=== PATIENT | male | born 1955 | race Caucasian/White ===

== ENCOUNTER 2017-01-31 13:17 | Inpatient (IN) | payer OTHER ==
--- NOTE | 2017-01-31 17:10 | HP ---
COWS - Scale Resting Pulse: 1= [place] 81-100 Sweatin=Flushed/Facial Moisture Restless Observation: 1= Difficult to Sit Still Pupil Size: 0= Normal to Room Light Bone or Joint Aches: 2= Severe Diffuse Aches Runny Nose/ Eye Tearin= Runny Nose/Eyes GI Upset > 30mins: 2= Nausea/Diarrhea Tremor Observation: 2= Slight Tremor Visible Yawning Observation: 2= >3x During Session Anxiety or Irritability: 2=Irritable/Anxious Goose Flesh Skin: 3=Piloerection COWS Score: 19 Admission ROS [facility] - [facility] Chief Complaint: I am here to detox. Allergies/Adverse Reactions: Allergies Allergy/AdvReac Type Severity Reaction Status Date / Time penicillin G Allergy Severe Hives Verified 01/31/17 16:45 sulfamethoxazole Allergy Severe Hives Verified 01/31/17 16:45 [From Bactrim] trimethoprim [From Bactrim] Allergy Severe Hives Verified 01/31/17 16:45 History of Present Illness: pt is a 62yr old male with a history of heroin and cocaine dependence seeking detox for treatment. Exam Limitations: No Limitations - Ebola screening Have you traveled outside of the country in the last 21 days: No Have you had contact with anyone from an Ebola affected area: No Have you been sick,other than usual withdrawal symptoms: No Do you have a fever: No - Review of Systems Constitutional: Chills, Diaphoresis, Loss of Appetite, Night Sweats, Changes in sleep, Unintentional Wgt. Loss EENT: reports: Tearing, Nose Congestion Respiratory: reports: No Symptoms reported Cardiac: reports: No Symptoms Reported GI: reports: Poor Appetite, Poor Fluid Intake : reports: No Symptoms Reported Musculoskeletal: reports: Back Pain Integumentary: reports: Flushing, Sweating Neuro: reports: Headache, Tingling, Tremors Endocrine: reports: Excessive Sweating, Flushing, Intolerance to Cold, Intolerance to Heat Hematology: reports: No Symptoms Reported Psychiatric: reports: Judgement Intact, Mood/Affect Appropiate, Orientated x3, Agitated, Anxious Other Systems: Reviewed and Negative Patient History - Patient Medical History Hx Anemia: No Hx Asthma: No Hx Chronic Obstructive Pulmonary Disease (COPD): No Hx Cancer: No Hx Cardiac Disorders: No Hx Congestive Heart Failure: No Hx Hypertension: Yes Hx Hypercholesterolemia: No Hx Pacemaker: No HX Cerebrovascular Accident: No Hx Seizures: No Hx Dementia: No Hx Diabetes: No Hx Gastrointestinal Disorders: No Hx Liver Disease: No Hx Genitourinary Disorders: No Hx Sexually Transmitted Disorders: No Hx Renal Disease (ESRD): No Hx Thyroid Disease: No Hx Human Immunodeficiency Virus (HIV): Yes (diagnosed 11/1996 not in treatment.) Hx Hepatitis C: Yes Hx Depression: No Hx Suicide Attempt: No Hx Bipolar Disorder: No Hx Schizophrenia: No - Patient Surgical History Past Surgical History: Yes Hx Neurologic Surgery: No Hx Cataract Extraction: No Hx Cardiac Surgery: No Hx Lung Surgery: No Hx Breast Surgery: No Hx Breast Biopsy: No Hx Abdominal Surgery: No Hx Appendectomy: Yes Hx Cholecystectomy: No Hx Genitourinary Surgery: No Hx Section: No Hx Orthopedic Surgery: No Other Surgical History: tonsillectomy Anesthesia Reaction: No - PPD History Previous Implant?: Yes Documented Results: Positive w/o proof Implanted On Prior R Admission?: No PPD to be Administered?: No - Reproductive History Patient is a Female of Child Bearing Age (11 -55 yrs old): No - Smoking Cessation Smoking history: Current every day smoker Have you smoked in the past 12 months: Yes Aproximately how many cigarettes per day: 10 Hx Chewing Tobacco Use: No Initiated information on smoking cessation: Yes 'Breaking Loose' booklet given: 01/31/17 - Substance & Tx. History Hx Alcohol Use: No Hx Substance Use: Yes Substance Use Type: Cocaine, Heroin Hx Substance Use Treatment: Yes (last detox 07/2016 at [facility]) - Substances Abused Heroin Route: Inhalation Frequency: Daily Amount used: 10 bags Age of first use: 16 Date of Last Use: 01/31/17 Crack Route: Smoking Frequency: Daily Amount used: $100-200 Age of first use: 26 Date of Last Use: 01/30/17 Family Disease History - Family Disease History Family History: Denies Admission Physical Exam BHS - Vital Signs Vital Signs: Vital Signs - 24 hr 01/31/17 14:52 Temperature 97.0 F L Pulse Rate 90 Respiratory 18 Rate Blood Pressure 150/90 - Physical General Appearance: Yes: Appropriately Dressed, Moderate Distress, Thin, Tremorous, Irritable, Sweating, Anxious HEENTM: Yes: Hearing grossly Normal, Normal Voice, Nasal Congestion, Rhinorrhea Respiratory: Yes: Lungs Clear, Normal Breath Sounds, No Respiratory Distress Neck: Yes: No masses,lesions,Nodules Breast: Yes: Within Normal Limits Cardiology: Yes: Regular Rhythm, Regular Rate, S1, S2 Abdominal: Yes: Normal Bowel Sounds, Soft Genitourinary: Yes: Within Normal Limits Back: Yes: Normal Inspection Musculoskeletal: Yes: Gait Steady, Back pain Extremities: Yes: Normal Capillary Refill, Normal Inspection, Tremors Neurological: Yes: Fully Oriented, Alert, Normal Response Integumentary: Yes: Normal Color, Diaphoresis Lymphatic: Yes: Within Normal Limits - Diagnostic (1) Opioid dependence with withdrawal Current Visit: Yes Status: Chronic (2) HIV (human immunodeficiency virus infection) Current Visit: Yes Status: Chronic Comment: not recieving any treatment for HIV (3) Hypertension Current Visit: Yes Status: Chronic Qualifiers: Hypertension type: essential hypertension Qualified Code(s): I10 - Essential (primary) hypertension (4) Nicotine dependence Current Visit: Yes Status: Chronic Qualifiers: Nicotine product type: cigarettes Substance use status: uncomplicated Qualified Code(s): F17.210 - Nicotine dependence, cigarettes, uncomplicated (5) Hepatitis C Current Visit: Yes Status: Chronic Qualifiers: Viral hepatitis chronicity: chronic Hepatic coma status: without hepatic coma Qualified Code(s): B18.2 - Chronic viral hepatitis C Cleared for Admission [facility] - Detox or Rehab [facility] Level of Care: Medically Managed Detox Regimen/Protocol: Methadone [facility] Breath Alcohol Content Breath Alcohol Content: 0 Urine Drug Screen - Results Drug Screen Negative: No Urine Drug Screen Results: ISAMAR-Cocaine, OPI-Opiates, MTD-Methadone
[2017-01-31] MEDS ORDERED: diphenhydrAMINE HCL 50 MG CAPSULE PO PRN (17:12)
[2017-01-31] MEDS ORDERED: IBUPROFEN 400 MG TABLET (FP) PO PRN (17:12)
[2017-01-31] MEDS ORDERED: LOPERAMIDE HCL 2 MG CAPSULE PO PRN (17:12)
[2017-01-31] MEDS ORDERED: hydrOXYzine PAMOATE 50 MG CAPSULE (FP) PO PRN (17:12)
[2017-01-31] MEDS ORDERED: METHADONE HCL 10 MG TABLET (FOR DETOX USE ONLY) PO ONE ×2 (17:12→23:00)
[2017-01-31] MEDS ORDERED: MAGNESIUM CITRATE 300 ML BOTTLE PO PRN (17:12)
[2017-01-31] MEDS ORDERED: ACETAMINOPHEN 325 MG TABLET (FP) PO PRN (17:12)
[2017-01-31] MEDS ORDERED: MAG HYDROX/AL HYDROX/SIMETH 30 ML UNIT-DOSE CUP PO PRN (17:12)
[2017-01-31] MEDS ORDERED: MAGNESIUM HYDROX 2400MG/30ML ORAL SUSPENSION 30 ML CUP PO PRN (17:12)
[2017-01-31] MEDS ORDERED: P-EPHED 60MG/TRIPROLIDI 2.5MG TABLET PO PRN (17:12)
[2017-01-31] MEDS ORDERED: guaiFENesin/D-METHORPHAN HB 10 ML UNIT-DOSE CUPS PO PRN (17:12)
[2017-01-31] MEDS ORDERED: MENTHOL/PHENOL 1 EACH UD MM PRN (17:12)
[2017-01-31] MEDS ORDERED: NICOTINE POLACRILEX 4 MG GUM BC PRN (17:12)
[2017-01-31] MEDS: diazePAM 5 MG TABLET PO PRN (19:13)
[2017-01-31 21:34] LABS: URINE APPEARANCE CLEAR; URINE BILIRUBIN NEGATIVE (NEGATIVE); URINE BLOOD NEGATIVE (NEGATIVE); URINE COLOR YELLOW; URINE GLUCOSE (UA) 1+ (NEGATIVE); URINE KETONE NEGATIVE (NEGATIVE); URINE LEUK ESTERASE NEGATIVE (NEGATIVE); URINE NITRITE NEGATIVE (NEGATIVE); URINE UROBILINOGEN NEGATIVE mg/dL (0.2-1.0)
[2017-01-31 21:37] LABS: URINE PROTEIN 2+ (NEGATIVE)
[2017-01-31 21:39] LABS: URINE BACTERIA RARE /hpf (NONE SEEN); URINE HYALINE CAST 1 /lpf; URINE MUCUS RARE; URINE RBC 7 /hpf (0-3); URINE WBC 1 /hpf (3-5)
[2017-01-31] MEDS: THIAMINE HCL 100 MG TABLET (FP) PO SCH (22:05)
[2017-02-01] MEDS: diazePAM 5 MG TABLET PO PRN ×2 (06:06→14:17)
[2017-02-01] MEDS ORDERED: cloNIDine HCL 0.1 MG TABLET PO ONE (07:59)
[2017-02-01] MEDS ORDERED: METHADONE HCL 10 MG TABLET (FOR DETOX USE ONLY) PO ONE (10:00)
[2017-02-01] MEDS: PRENATAL VITAMINS W/ FOLIC ACID TABLET (FP) PO SCH (10:05)
[2017-02-01] MEDS: amLODIPine BESYLATE 10 MG TABLET (FP) PO SCH (10:05)
[2017-02-01] MEDS: NICOTINE 21 MG/24 HOURS TOPICAL PATCH TD SCH (10:06)
[2017-02-01 10:43] LABS: MCH 29.6 pg (25.7-33.7); MCHC 33.1 g/dl (32.0-35.9); MEAN CELL VOLUME 89.4 fl (80-96); MEAN PLT VOLUME 9.5 fl (7.5-11.1); PLATELET COUNT 56 K/MM3 (134-434); RDW 14.4 % (11.9-15.9); WHITE BLOOD COUNT 3.2 K/mm3 (4.0-10.0)
[2017-02-01 11:04] LABS: ALBUMIN 2.8 g/dl (3.4-5.0); ALK PHOS 96 U/L (45-117); ANION GAP 6 (8-16); BILIRUBIN,TOTAL 0.3 mg/dL (0.2-1.0); CALCIUM 8.2 mg/dL (8.5-10.1); CO2 30 mmol/L (21-32); CREATININE 1.4 mg/dL (0.7-1.3); GLUCOSE,RANDOM 71 mg/dL (74-106); SGOT/AST 39 U/L (15-37); SGPT/ALT 35 U/L (12-78); TOT PROT 7.6 g/dl (6.4-8.2)
[2017-02-01 12:24] LABS: PLATELET COMMENT2 NO CLOTTING DETECTED; PLATELET ESTIMATE DECREASED (NORMAL)
--- NOTE | 2017-02-01 13:24 | PN ---
S COWS - Scale Resting Pulse: 0= [place] 80 or Below Sweatin= Chills/Flushing Restless Observation: 0= Sits Still Pupil Size: 0= Normal to Room Light Bone or Joint Aches: 2= Severe Diffuse Aches Runny Nose/ Eye Tearin= Runny Nose/Eyes GI Upset > 30mins: 1= Stomach Cramp Tremor Observation of Outstretched Hands: 2= Slight Tremor Visible Yawning Observation: 1= 1-2x During Session Anxiety or Irritability: 2=Irritable/Anxious Goose Flesh Skin: 3=Piloerection COWS Score: 14 S Progress Note (SOAP) Subjective: Interrupted sleep, Body aches, Sweating. Objective: PT. A & O X 2 (DISORIENTED ABOUT DAY / DATE). NO ACUTE DISTRESS. PT. LUIGI CHEST PAIN. 02/01/17 13:17 Vital Signs Temperature 97.8 F 02/01/17 10:22 Pulse Rate 76 02/01/17 10:22 Respiratory Rate 18 02/01/17 10:22 Blood Pressure 174/105 02/01/17 10:22 O2 Sat by Pulse Oximetry (%) Laboratory Tests 01/31/17 02/01/17 02/01/17 21:00 07:50 07:50 WBC 3.2 L RBC 4.20 Hgb 12.4 Hct 37.5 MCV 89.4 MCH 29.6 MCHC 33.1 RDW 14.4 Plt Count 56 L MPV 9.5 Platelet Estimate Decreased Platelet Comment No clotting detected Sodium 138 Potassium 4.6 Chloride 102 Carbon Dioxide 30 Anion Gap 6 L BUN 31 H Creatinine 1.4 H Creat Clearance w eGFR 51.18 Random Glucose 71 L Calcium 8.2 L Total Bilirubin 0.3 AST 39 H ALT 35 Alkaline Phosphatase 96 Total Protein 7.6 Albumin 2.8 L Urine Color Yellow Urine Appearance Clear Urine pH 5.0 Ur Specific [place] 1.025 Urine Protein 2+ H Urine Glucose (UA) 1+ H Urine Ketones Negative Urine Blood Negative Urine Nitrite Negative Urine Bilirubin Negative Urine Urobilinogen Negative Ur Leukocyte Esterase Negative Urine RBC 7 Urine WBC 1 Ur Epithelial Cells Rare Urine Bacteria Rare Hyaline Casts 1 Urine Mucus Rare RPR Titer 02/01/17 07:50 WBC RBC Hgb Hct MCV MCH MCHC RDW Plt Count MPV Platelet Estimate Platelet Comment Sodium Potassium Chloride Carbon Dioxide Anion Gap BUN Creatinine Creat Clearance w eGFR Random Glucose Calcium Total Bilirubin AST ALT Alkaline Phosphatase Total Protein Albumin Urine Color Urine Appearance Urine pH Ur Specific [place] Urine Protein Urine Glucose (UA) Urine Ketones Urine Blood Urine Nitrite Urine Bilirubin Urine Urobilinogen Ur Leukocyte Esterase Urine RBC Urine WBC Ur Epithelial Cells Urine Bacteria Hyaline Casts Urine Mucus RPR Titer Nonreactive LABS NOTED. Assessment: 02/01/17 13:18 WITHDRAWAL SYMPTOMS. Plan: CONTINUE DETOX. BMP AND REPEAT CBC ON 02/03/2017 FOR ABNORMAL ADMISSION VALUES. LISINOPRIL, 10 MG PO BID (FIRST DOSE NOW). D/C MAGNESIUM-CONTAINING MEDS. INCREASE PO FLUID INTAKE.
[2017-02-01] MEDS: LISINOPRIL 10 MG TABLET (FP) PO SCH ×2 (14:16→22:14)
[2017-02-01] MEDS: THIAMINE HCL 100 MG TABLET (FP) PO SCH (22:14)
[2017-02-02] MEDS: diazePAM 5 MG TABLET PO PRN ×3 (05:22→22:04)
[2017-02-02] MEDS ORDERED: cloNIDine HCL 0.1 MG TABLET PO ONE (06:57)
--- NOTE | 2017-02-02 07:06 | PN ---
S Progress Note Note: bp 171/105,hx of hypertension on norvasc 10 mgs po daily,lisinopril 10 mg po bid ,withdrawal symptom to give clonidine 0.1 mg po now then bid vital sign monitoring
[2017-02-02] MEDS ORDERED: METHADONE HCL 5 MG TABLET (FOR DETOX USE ONLY) PO ONE (10:00)
[2017-02-02] MEDS: amLODIPine BESYLATE 10 MG TABLET (FP) PO SCH (10:20)
[2017-02-02] MEDS: PRENATAL VITAMINS W/ FOLIC ACID TABLET (FP) PO SCH (10:20)
[2017-02-02] MEDS: NICOTINE 21 MG/24 HOURS TOPICAL PATCH TD SCH (10:21)
[2017-02-02] MEDS: cloNIDine HCL 0.1 MG TABLET PO SCH ×2 (10:22→22:04)
--- NOTE | 2017-02-02 15:50 | PN ---
BHS COWS - Scale Resting Pulse: 1= [place] 81-100 Sweatin=Flushed/Facial Moisture Restless Observation: 3= Extraneous Movement Pupil Size: 0= Normal to Room Light Bone or Joint Aches: 2= Severe Diffuse Aches Runny Nose/ Eye Tearin= Runny Nose/Eyes GI Upset > 30mins: 1= Stomach Cramp Tremor Observation of Outstretched Hands: 2= Slight Tremor Visible Yawning Observation: 0= None Anxiety or Irritability: 2=Irritable/Anxious Goose Flesh Skin: 0=Smooth Skin COWS Score: 15 BHS Progress Note (SOAP) Subjective: Headache, stomach ache, sweating, tremor, chills, body ache; patient reports h/ o HTN and takes norvasc 10mg at home but has been noncompliant. He denies having a PCP and food writer encouraged him to call his insurance post discharge to request a PCP Objective: 02/02/17 15:48 Last Vital Signs Temp Pulse Resp BP Pulse Ox 98.1 F 86 18 131/79 02/02/17 09:43 02/02/17 09:43 02/02/17 09:43 02/02/17 09:43 Laboratory Tests 01/31/17 02/01/17 02/01/17 21:00 07:50 07:50 WBC 3.2 L RBC 4.20 Hgb 12.4 Hct 37.5 MCV 89.4 MCH 29.6 MCHC 33.1 RDW 14.4 Plt Count 56 L MPV 9.5 Platelet Estimate Decreased Platelet Comment No clotting detected Sodium 138 Potassium 4.6 Chloride 102 Carbon Dioxide 30 Anion Gap 6 L BUN 31 H Creatinine 1.4 H Creat Clearance w eGFR 51.18 Random Glucose 71 L Calcium 8.2 L Total Bilirubin 0.3 AST 39 H ALT 35 Alkaline Phosphatase 96 Total Protein 7.6 Albumin 2.8 L Urine Color Yellow Urine Appearance Clear Urine pH 5.0 Ur Specific [place] 1.025 Urine Protein 2+ H Urine Glucose (UA) 1+ H Urine Ketones Negative Urine Blood Negative Urine Nitrite Negative Urine Bilirubin Negative Urine Urobilinogen Negative Ur Leukocyte Esterase Negative Urine RBC 7 Urine WBC 1 Ur Epithelial Cells Rare Urine Bacteria Rare Hyaline Casts 1 Urine Mucus Rare RPR Titer 02/01/17 07:50 WBC RBC Hgb Hct MCV MCH MCHC RDW Plt Count MPV Platelet Estimate Platelet Comment Sodium Potassium Chloride Carbon Dioxide Anion Gap BUN Creatinine Creat Clearance w eGFR Random Glucose Calcium Total Bilirubin AST ALT Alkaline Phosphatase Total Protein Albumin Urine Color Urine Appearance Urine pH Ur Specific [place] Urine Protein Urine Glucose (UA) Urine Ketones Urine Blood Urine Nitrite Urine Bilirubin Urine Urobilinogen Ur Leukocyte Esterase Urine RBC Urine WBC Ur Epithelial Cells Urine Bacteria Hyaline Casts Urine Mucus RPR Titer Nonreactive Labs noted: serum creatinine 1.4, bun 31, GFR 51.18, wbc 3.2, plt 56; UA: 2+ protein, 1+ glucose Assessment: 02/02/17 15:50 Withdrawal symptoms Pmhx of HTN Noted with GLENIS vs prerenal azotemia, neutropenia, thrombocytopenia, proteinuria and glycosuria Plan: Continue detox HTN: continue norvasc 10mg PO daily, d/c lisinopril due to GLENIS, consider changing clonidine to HCTZ etc if b/p not controlled with norvasc alone, encouraged to drink lots of water GLENIS vs prerenal azotemia:encouraged to drink lots of water, repeat BMP in AM Neutropenia: encouraged good hand washing with soap and water, ordered for repeat CBC in AM Thrombocytopenia: patient denies any history, monitor for bruising/bleeding, ordered for repeat CBC in AM Proteinuria and glycosuria: encouraged to drink lots of water, repeat UA in AM
[2017-02-02] MEDS: THIAMINE HCL 100 MG TABLET (FP) PO SCH (22:04)
--- NOTE | 2017-02-02 22:28 | EKG ---
Test Reason : Blood Pressure : / mmHG Vent. Rate : 076 BPM Atrial Rate : 076 BPM P-R Int : 138 ms QRS Dur : 084 ms QT Int : 454 ms P-R-T Axes : 083 041 255 degrees QTc Int : 510 ms SINUS RHYTHM WITH PREMATURE ATRIAL COMPLEXES MODERATE VOLTAGE CRITERIA FOR LVH, MAY BE NORMAL VARIANT CANNOT RULE OUT SEPTAL INFARCT , AGE UNDETERMINED T WAVE ABNORMALITY, CONSIDER INFEROLATERAL ISCHEMIA PROLONGED QT ABNORMAL ECG NO PREVIOUS ECGS AVAILABLE Confirmed by GERALDINE WONG, SIRENA ([id number]) on 02/02/2017 10:28:09 PM Referred By: Confirmed By:SIRENA CHANDLER MD
[2017-02-03] MEDS: diazePAM 5 MG TABLET PO PRN (05:12)
[2017-02-03] MEDS ORDERED: METHADONE HCL 5 MG TABLET (FOR DETOX USE ONLY) PO ONE (10:00)
[2017-02-03] MEDS: PRENATAL VITAMINS W/ FOLIC ACID TABLET (FP) PO SCH (10:03)
[2017-02-03] MEDS: amLODIPine BESYLATE 10 MG TABLET (FP) PO SCH (10:04)
[2017-02-03] MEDS: cloNIDine HCL 0.1 MG TABLET PO SCH ×2 (10:04→22:11)
[2017-02-03] MEDS: NICOTINE 21 MG/24 HOURS TOPICAL PATCH TD SCH (10:06)
[2017-02-03 10:07] LABS: MCH 29.1 pg (25.7-33.7); MCHC 32.4 g/dl (32.0-35.9); MEAN CELL VOLUME 89.7 fl (80-96); MEAN PLT VOLUME 9.3 fl (7.5-11.1); PLATELET COUNT 39 K/MM3 (134-434); WHITE BLOOD COUNT 2.8 K/mm3 (4.0-10.0)
[2017-02-03 10:18] LABS: ANION GAP 4 (8-16); CALCIUM 8.1 mg/dL (8.5-10.1); CO2 30 mmol/L (21-32); CREATININE 1.2 mg/dL (0.7-1.3); GLUCOSE,RANDOM 76 mg/dL (74-106)
[2017-02-03 10:48] LABS: BASOPHIL (MANUAL) 1 % (0-2.0); TOTAL CELLS COUNTED 100
--- NOTE | 2017-02-03 12:16 | PN ---
BHS Progress Note (SOAP) Subjective: Fatigue, Chills, Body Aches, Interrupted sleep. Objective: PT. A & O X 2 (DISORIENTED ABOUT DAY / DATE). NO ACUTE DISTRESS. PT. DENIES CHEST PAIN. PT. DENIES ANY UNUSUAL BLEEDING. 02/03/17 12:17 Vital Signs Temperature 98.1 F 02/03/17 09:03 Pulse Rate 78 02/03/17 09:03 Respiratory Rate 18 02/03/17 09:03 Blood Pressure 155/86 02/03/17 09:03 O2 Sat by Pulse Oximetry (%) Laboratory Tests 01/31/17 02/01/17 02/01/17 21:00 07:50 07:50 WBC 3.2 L RBC 4.20 Hgb 12.4 Hct 37.5 MCV 89.4 MCH 29.6 MCHC 33.1 RDW 14.4 Plt Count 56 L MPV 9.5 Total Counted Neutrophils % Neutrophils % (Manual) Lymphocytes % Lymphocytes % (Manual) Monocytes % (Manual) Eosinophils % (Manual) Basophils % (Manual) Platelet Estimate Decreased Platelet Comment No clotting detected Sodium 138 Potassium 4.6 Chloride 102 Carbon Dioxide 30 Anion Gap 6 L BUN 31 H Creatinine 1.4 H Creat Clearance w eGFR 51.18 Random Glucose 71 L Calcium 8.2 L Total Bilirubin 0.3 AST 39 H ALT 35 Alkaline Phosphatase 96 Total Protein 7.6 Albumin 2.8 L Urine Color Yellow Urine Appearance Clear Urine pH 5.0 Ur Specific [place] 1.025 Urine Protein 2+ H Urine Glucose (UA) 1+ H Urine Ketones Negative Urine Blood Negative Urine Nitrite Negative Urine Bilirubin Negative Urine Urobilinogen Negative Ur Leukocyte Esterase Negative Urine RBC 7 Urine WBC 1 Ur Epithelial Cells Rare Urine Bacteria Rare Hyaline Casts 1 Urine Mucus Rare RPR Titer 02/01/17 02/03/17 02/03/17 07:50 06:30 06:30 WBC 2.8 L RBC 3.94 L Hgb 11.4 L Hct 35.4 MCV 89.7 MCH 29.1 MCHC 32.4 RDW 14.0 Plt Count 39 L D MPV 9.3 Total Counted 100 Neutrophils % Y Neutrophils % (Manual) 55 Lymphocytes % Y Lymphocytes % (Manual) 26 Monocytes % (Manual) 15 H Eosinophils % (Manual) 3 Basophils % (Manual) 1 Platelet Estimate Platelet Comment Sodium 138 Potassium 4.4 Chloride 104 Carbon Dioxide 30 Anion Gap 4 L BUN 27 H Creatinine 1.2 Creat Clearance w eGFR Random Glucose 76 Calcium 8.1 L Total Bilirubin AST ALT Alkaline Phosphatase Total Protein Albumin Urine Color Urine Appearance Urine pH Ur Specific [place] Urine Protein Urine Glucose (UA) Urine Ketones Urine Blood Urine Nitrite Urine Bilirubin Urine Urobilinogen Ur Leukocyte Esterase Urine RBC Urine WBC Ur Epithelial Cells Urine Bacteria Hyaline Casts Urine Mucus RPR Titer Nonreactive LABS NOTED. RESULTS OF REPEAT CBC, CMP, AND UA NOTED. HYDRATION ENCOURAGED FOR PATIENT. 02/03/17 12:19 02/03/17 16:38 02/03/17 16:38 Assessment: 02/03/17 12:18 WITHDRAWAL SYMPTOMS. Plan: CONTINUE DETOX. INCREASE PO FLUID INTAKE.
[2017-02-03 15:38] LABS: URINE APPEARANCE CLEAR; URINE BILIRUBIN NEGATIVE (NEGATIVE); URINE BLOOD NEGATIVE (NEGATIVE); URINE COLOR LTYELLOW; URINE GLUCOSE (UA) NEGATIVE (NEGATIVE); URINE KETONE NEGATIVE (NEGATIVE); URINE LEUK ESTERASE NEGATIVE (NEGATIVE); URINE NITRITE NEGATIVE (NEGATIVE); URINE PROTEIN NEGATIVE (NEGATIVE); URINE UROBILINOGEN NEGATIVE mg/dL (0.2-1.0)
[2017-02-03] MEDS: THIAMINE HCL 100 MG TABLET (FP) PO SCH (22:11)
--- NOTE | 2017-02-04 09:07 | PN ---
BHS Progress Note (SOAP) Subjective: nausea, sweats, interrupted sleep, anxiety, tremors Objective: 02/04/17 09:05 Vital Signs - 8 hr 02/04/17 02/04/17 02/04/17 03:21 06:25 07:32 Temperature 97.9 F Pulse Rate 75 75 Respiratory 18 20 Rate Blood Pressure 161/96 141/81 Laboratory Tests 01/31/17 02/01/17 02/01/17 21:00 07:50 07:50 WBC 3.2 L RBC 4.20 Hgb 12.4 Hct 37.5 MCV 89.4 MCH 29.6 MCHC 33.1 RDW 14.4 Plt Count 56 L MPV 9.5 Total Counted Neutrophils % Neutrophils % (Manual) Lymphocytes % Lymphocytes % (Manual) Monocytes % (Manual) Eosinophils % (Manual) Basophils % (Manual) Platelet Estimate Decreased Platelet Comment No clotting detected Sodium 138 Potassium 4.6 Chloride 102 Carbon Dioxide 30 Anion Gap 6 L BUN 31 H Creatinine 1.4 H Creat Clearance w eGFR 51.18 Random Glucose 71 L Calcium 8.2 L Total Bilirubin 0.3 AST 39 H ALT 35 Alkaline Phosphatase 96 Total Protein 7.6 Albumin 2.8 L Urine Color Yellow Urine Appearance Clear Urine pH 5.0 Ur Specific [place] 1.025 Urine Protein 2+ H Urine Glucose (UA) 1+ H Urine Ketones Negative Urine Blood Negative Urine Nitrite Negative Urine Bilirubin Negative Urine Urobilinogen Negative Ur Leukocyte Esterase Negative Urine RBC 7 Urine WBC 1 Ur Epithelial Cells Rare Urine Bacteria Rare Hyaline Casts 1 Urine Mucus Rare RPR Titer 02/01/17 02/03/17 02/03/17 07:50 06:30 06:30 WBC 2.8 L RBC 3.94 L Hgb 11.4 L Hct 35.4 MCV 89.7 MCH 29.1 MCHC 32.4 RDW 14.0 Plt Count 39 L D MPV 9.3 Total Counted 100 Neutrophils % Y Neutrophils % (Manual) 55 Lymphocytes % Y Lymphocytes % (Manual) 26 Monocytes % (Manual) 15 H Eosinophils % (Manual) 3 Basophils % (Manual) 1 Platelet Estimate Platelet Comment Sodium 138 Potassium 4.4 Chloride 104 Carbon Dioxide 30 Anion Gap 4 L BUN 27 H Creatinine 1.2 Creat Clearance w eGFR Random Glucose 76 Calcium 8.1 L Total Bilirubin AST ALT Alkaline Phosphatase Total Protein Albumin Urine Color Urine Appearance Urine pH Ur Specific [place] Urine Protein Urine Glucose (UA) Urine Ketones Urine Blood Urine Nitrite Urine Bilirubin Urine Urobilinogen Ur Leukocyte Esterase Urine RBC Urine WBC Ur Epithelial Cells Urine Bacteria Hyaline Casts Urine Mucus RPR Titer Nonreactive 02/03/17 09:40 WBC RBC Hgb Hct MCV MCH MCHC RDW Plt Count MPV Total Counted Neutrophils % Neutrophils % (Manual) Lymphocytes % Lymphocytes % (Manual) Monocytes % (Manual) Eosinophils % (Manual) Basophils % (Manual) Platelet Estimate Platelet Comment Sodium Potassium Chloride Carbon Dioxide Anion Gap BUN Creatinine Creat Clearance w eGFR Random Glucose Calcium Total Bilirubin AST ALT Alkaline Phosphatase Total Protein Albumin Urine Color Ltyellow Urine Appearance Clear Urine pH 5.0 Ur Specific [place] 1.015 Urine Protein Negative Urine Glucose (UA) Negative Urine Ketones Negative Urine Blood Negative Urine Nitrite Negative Urine Bilirubin Negative Urine Urobilinogen Negative Ur Leukocyte Esterase Negative Urine RBC Urine WBC Ur Epithelial Cells Urine Bacteria Hyaline Casts Urine Mucus RPR Titer labs noted Assessment: 02/04/17 09:06 withdrawal sx, pancytopenia, neg CXR Plan: cont detox, fluids, encourage ambulation
[2017-02-04] MEDS ORDERED: METHADONE HCL 10 MG TABLET (FOR DETOX USE ONLY) PO ONE (10:00)
[2017-02-04] MEDS: amLODIPine BESYLATE 10 MG TABLET (FP) PO SCH (10:19)
[2017-02-04] MEDS: NICOTINE 21 MG/24 HOURS TOPICAL PATCH TD SCH (10:19)
[2017-02-04] MEDS: PRENATAL VITAMINS W/ FOLIC ACID TABLET (FP) PO SCH (10:19)
[2017-02-04] MEDS: cloNIDine HCL 0.1 MG TABLET PO SCH ×2 (10:19→22:09)
[2017-02-04] MEDS: THIAMINE HCL 100 MG TABLET (FP) PO SCH (22:09)
[2017-02-05] MEDS ORDERED: METHADONE HCL 5 MG TABLET (FOR DETOX USE ONLY) PO ONE (06:00)
[2017-02-05] MEDS: amLODIPine BESYLATE 10 MG TABLET (FP) PO SCH (09:10)
[2017-02-05] MEDS: PRENATAL VITAMINS W/ FOLIC ACID TABLET (FP) PO SCH (09:10)
[2017-02-05] MEDS: cloNIDine HCL 0.1 MG TABLET PO SCH (09:10)
[2017-02-05] MEDS: NICOTINE 21 MG/24 HOURS TOPICAL PATCH TD SCH (09:11)
[2017-02-05 09:43] VITALS: BP 133/77; PULSE 78; TEMP 96.8
--- NOTE | 2017-02-05 18:55 | DS ---
[facility] Detox Discharge Summary Admission Date: 01/31/17 Discharge Date: 02/05/17 - History Present History: Opioid Dependence Additional Comments: [facility] PATIENT ADVISED TO FOLLOW-UP THERE FOR AFTERCARE PER DISCHARGE ARRANGEMENT. PATIENT WAS DISCHARGED FROM UNIT IN STABLE MEDICAL CONDITION. Pertinent Past History: Hep C, HIV, HTN. - Physical Exam Results Vital Signs: Vital Signs Temperature 96.8 F L 02/05/17 09:42 Pulse Rate 78 02/05/17 09:42 Respiratory Rate 18 02/05/17 09:42 Blood Pressure 133/77 02/05/17 09:42 O2 Sat by Pulse Oximetry (%) Pertinent Admission Physical Exam Findings: WITHDRAWAL SYMPTOMS. Laboratory Tests 01/31/17 02/01/17 02/01/17 21:00 07:50 07:50 WBC 3.2 L RBC 4.20 Hgb 12.4 Hct 37.5 MCV 89.4 MCH 29.6 MCHC 33.1 RDW 14.4 Plt Count 56 L MPV 9.5 Total Counted Neutrophils % Neutrophils % (Manual) Lymphocytes % Lymphocytes % (Manual) Monocytes % (Manual) Eosinophils % (Manual) Basophils % (Manual) Platelet Estimate Decreased Platelet Comment No clotting detected Sodium 138 Potassium 4.6 Chloride 102 Carbon Dioxide 30 Anion Gap 6 L BUN 31 H Creatinine 1.4 H Creat Clearance w eGFR 51.18 Random Glucose 71 L Calcium 8.2 L Total Bilirubin 0.3 AST 39 H ALT 35 Alkaline Phosphatase 96 Total Protein 7.6 Albumin 2.8 L Urine Color Yellow Urine Appearance Clear Urine pH 5.0 Ur Specific [place] 1.025 Urine Protein 2+ H Urine Glucose (UA) 1+ H Urine Ketones Negative Urine Blood Negative Urine Nitrite Negative Urine Bilirubin Negative Urine Urobilinogen Negative Ur Leukocyte Esterase Negative Urine RBC 7 Urine WBC 1 Ur Epithelial Cells Rare Urine Bacteria Rare Hyaline Casts 1 Urine Mucus Rare RPR Titer 02/01/17 02/03/17 02/03/17 07:50 06:30 06:30 WBC 2.8 L RBC 3.94 L Hgb 11.4 L Hct 35.4 MCV 89.7 MCH 29.1 MCHC 32.4 RDW 14.0 Plt Count 39 L D MPV 9.3 Total Counted 100 Neutrophils % Y Neutrophils % (Manual) 55 Lymphocytes % Y Lymphocytes % (Manual) 26 Monocytes % (Manual) 15 H Eosinophils % (Manual) 3 Basophils % (Manual) 1 Platelet Estimate Platelet Comment Sodium 138 Potassium 4.4 Chloride 104 Carbon Dioxide 30 Anion Gap 4 L BUN 27 H Creatinine 1.2 Creat Clearance w eGFR Random Glucose 76 Calcium 8.1 L Total Bilirubin AST ALT Alkaline Phosphatase Total Protein Albumin Urine Color Urine Appearance Urine pH Ur Specific [place] Urine Protein Urine Glucose (UA) Urine Ketones Urine Blood Urine Nitrite Urine Bilirubin Urine Urobilinogen Ur Leukocyte Esterase Urine RBC Urine WBC Ur Epithelial Cells Urine Bacteria Hyaline Casts Urine Mucus RPR Titer Nonreactive 02/03/17 09:40 WBC RBC Hgb Hct MCV MCH MCHC RDW Plt Count MPV Total Counted Neutrophils % Neutrophils % (Manual) Lymphocytes % Lymphocytes % (Manual) Monocytes % (Manual) Eosinophils % (Manual) Basophils % (Manual) Platelet Estimate Platelet Comment Sodium Potassium Chloride Carbon Dioxide Anion Gap BUN Creatinine Creat Clearance w eGFR Random Glucose Calcium Total Bilirubin AST ALT Alkaline Phosphatase Total Protein Albumin Urine Color Ltyellow Urine Appearance Clear Urine pH 5.0 Ur Specific [place] 1.015 Urine Protein Negative Urine Glucose (UA) Negative Urine Ketones Negative Urine Blood Negative Urine Nitrite Negative Urine Bilirubin Negative Urine Urobilinogen Negative Ur Leukocyte Esterase Negative Urine RBC Urine WBC Ur Epithelial Cells Urine Bacteria Hyaline Casts Urine Mucus RPR Titer LABS NOTED. - Treatment Hospital Course: Detox Protocol Followed, Detoxed Safely, Responded well, Discharged Condition Good, Rehab Referral Accepted Patient has Accepted a Rehab Referral to: [facility]. - Medication Discharge Medications: Ambulatory Orders Amlodipine Besylate [Norvasc -] 10 mg PO DAILY 01/31/17 - Diagnosis (1) HIV (human immunodeficiency virus infection) Status: Chronic (2) Hepatitis C Status: Chronic Qualifiers: Viral hepatitis chronicity: chronic Hepatic coma status: without hepatic coma Qualified Code(s): B18.2 - Chronic viral hepatitis C (3) Hypertension Status: Chronic Qualifiers: Hypertension type: essential hypertension Qualified Code(s): I10 - Essential (primary) hypertension (4) Nicotine dependence Status: Chronic Qualifiers: Nicotine product type: cigarettes Substance use status: uncomplicated Qualified Code(s): F17.210 - Nicotine dependence, cigarettes, uncomplicated (5) Opioid dependence with withdrawal Status: Acute - AMA Did Patient Leave Against Medical Advice: No
== END 2017-02-05 10:27 | disposition home or self-care (01) | DRG 773 ==
LOC: YASAS 13:17 → Y3N 18:31
PROVIDERS: ADMIT Internal Medicine; ATTEND Internal Medicine
PROC: HZ2ZZZZ Detoxification Services for Substance Abuse Treatment (ICD-10-PCS; principal; 2017-01-31)
DX: F11.23 Opioid dependence with withdrawal (principal); F14.20 Cocaine dependence, uncomplicated; F17.210 Nicotine dependence, cigarettes, uncomplicated; Z21 Asymptomatic human immunodeficiency virus [HIV] infection status; B18.2 Chronic viral hepatitis C; I10 Essential (primary) hypertension; D61.818 Other pancytopenia; D70.9 Neutropenia, unspecified; D69.6 Thrombocytopenia, unspecified; R80.9 Proteinuria, unspecified; R81 Glycosuria; N17.9 Acute kidney failure, unspecified; R79.89 Other specified abnormal findings of blood chemistry; Z88.0 Allergy status to penicillin; Z88.1 Allergy status to other antibiotic agents
CPT/HCPCS: 36415; 71020-TC; 80048; 80053; 81003; 81015; 85025; 85027; 86593; 93005; 93010